=== PATIENT | female | born 1995 ===

== ENCOUNTER 2024-06-17 09:25 | Outpatient (CLI) | payer BC, SELFPAY | END 2024-06-17 09:26 | disposition home or self-care (01) | PROVIDERS: PCP Physician Assistant Medical; Visit Provider Physician Assistant Medical | DX: Z13.228 Encounter for screening for other metabolic disorders (principal); Z13.6 Encounter for screening for cardiovascular disorders; Z13.29 Encounter for screening for other suspected endocrine disorder | CPT/HCPCS: 80053; 80061; 84443 ==